=== PATIENT | male | born 1995 | race Caucasian/White ===

== ENCOUNTER → 2016-09-30 | Outpatient (CLI) | payer OTHER ==
[~2016-09-30] MED LIST: BUPR-79 PO
== END ==
LOC: C.LAB 03:53
DX: Z02.83 Encounter for blood-alcohol and blood-drug test (principal)

== ENCOUNTER 2016-10-07 06:37 | Inpatient (IN) | payer OTHER ==
[~2016-10-07] VITALS: Ht 177.8 cm; Wt 68.0 kg
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
[2016-10-07 07:21] LABS: BASO % 0.4 %; BASO ABS # 0.03 K/uL (0-0.2); COMPLETE YES; EOS % 0.6 %; HEMATOCRIT 41.5 % (42-52); IG% 0.2 %; LYMPH % 32.2 %; LYMPH ABS # 2.76 K/uL (1.2-3.4); MEAN CORPUSCULAR HEMOGLOBIN 30.4 pg (25-34); MEAN CORPUSCULAR HGB CONC 36.1 g/dl (32-36); MEAN PLATELET VOLUME 9.9 fL (7.4-10.4); MONO % 6.4 %; NEUT % 60.2 %; PLATELET COUNT 280 K/uL (130-400); RED BLOOD COUNT 4.94 M/uL (4.7-6.1); WHITE BLOOD COUNT 8.56 K/uL (4.8-10.8)
[2016-10-07 07:35] LABS: URINE APPEARANCE CLEAR (CLEAR); URINE BILIRUBIN NEG (NEG); URINE COLOR YELLOW; URINE NITRITE NEG (NEG); URINE PH 5.5 (4.5-7.5); URINE SPECIFIC GRAVITY 1.017 (1.000-1.030); UROBILINOGEN NEG (NEG); ZZUR CULT IF INDIC CLEAN CATCH NO
[2016-10-07 07:39] LABS: ALT/SGPT 31 U/L (12-78); BLOOD UREA NITROGEN 9 mg/dl (7-18); BUN/CREATININE RATIO 10.2 (10-20); CALCIUM 8.4 mg/dl (8.5-10.1); CARBON DIOXIDE 25 mmol/L (21-32); CHLORIDE 109 mmol/L (98-107); CREATININE 0.83 mg/dl (0.60-1.40); GLUCOSE 101 mg/dl (70-99); SODIUM 142 mmol/L (136-145)
[2016-10-07 07:40] LABS: MANUAL MICROSCOPIC REQUIRED? NO; REVIEW REQ? NO
[2016-10-07 07:50] LABS: ALKALINE PHOSPHATASE 69 U/L (45-117); AST/SGOT 18 U/L (15-37); THYROID STIMULATING HORMONE 0.299 uIu/ml (0.300-4.500)
[2016-10-07 07:57] LABS: ACETAMINOPHEN < 2 ug/ml (10-30)
[2016-10-07] MEDS ORDERED: LORAZEPAM 2 MG/ML 1 ML VIAL IM STA (08:06)
[2016-10-07] MEDS ORDERED: HALOPERIDOL LACTATE 5 MG/ML 1 ML VIAL IM STA (08:06)
[2016-10-07 08:34] LABS: BENZODIAZEPINE, URINE NEG (NEG); COCAINE,URINE NEG (NEG); PHENCYCLIDINE, URINE NEG (NEG)
[2016-10-07] MEDS ORDERED: BUPR-79 PO (08:37)
[2016-10-07] MEDS ORDERED: LORAZEPAM 1 MG TAB SL STA (15:12)
--- NOTE | 2016-10-07 16:52 | EMERGENCY ROOM VISIT NOTE ---
ED Visit Note Received patient in signout at change of shift from Dr. Mobley. History and physical verified by me. Patient currently receiving mental health evaluation. I will believe he will be admitted upstairs to 3 S. Current/Historical Medications Scheduled Bupropion (Wellbutrin Sr), 150 MG PO QAM Allergies Coded Allergies: No Known Allergies (Unverified , 10/07/16) Vital Signs Date Time Temp Pulse Resp B/P (MAP) Pulse Ox O2 Delivery O2 Flow Rate FiO2 10/07/16 15:59 93 18 156/87 97 Room Air 10/07/16 13:56 95 18 156/90 98 Room Air 10/07/16 12:13 86 10/07/16 12:00 87 16 97 Room Air 10/07/16 10:05 92 14 96 Room Air 10/07/16 09:50 90 15 96 Room Air 10/07/16 09:36 86 13 96 Room Air 10/07/16 09:21 88 11 96 10/07/16 09:16 87 10/07/16 09:16 87 15 96 Room Air 10/07/16 09:05 96 Room Air 10/07/16 06:48 36.7 76 16 127/82 97 Room Air Laboratory Results 10/07/16 07:00 Red Blood Count 4.94, Mean Corpuscular Volume 84.0, Mean Corpuscular Hemoglobin 30.4, Mean Corpuscular Hemoglobin Concent 36.1, Mean Platelet Volume 9.9, Neutrophils (%) (Auto) 60.2, Lymphocytes (%) (Auto) 32.2, Monocytes (%) (Auto) 6.4, Eosinophils (%) (Auto) 0.6, Basophils (%) (Auto) 0.4, Neutrophils # (Auto) 5.15, Lymphocytes # (Auto) 2.76, Monocytes # (Auto) 0.55, Eosinophils # (Auto) 0.05, Basophils # (Auto) 0.03 10/07/16 07:00 Test 10/07/16 06:14 10/07/16 07:00 Urine Color YELLOW Urine Appearance CLEAR (CLEAR) Urine pH 5.5 (4.5-7.5) Urine Specific [place] 1.017 (1.000-1.030) Urine Protein NEG (NEG) Urine Glucose (UA) NEG (NEG) Urine Ketones NEG (NEG) Urine Occult Blood NEG (NEG) Urine Nitrite NEG (NEG) Urine Bilirubin NEG (NEG) Urine Urobilinogen NEG (NEG) Urine Leukocyte Esterase NEG (NEG) Urine Opiates Screen NEG (NEG) Urine Methadone, Qualitative NEG (NEG) Urine Barbiturates NEG (NEG) Urine Phencyclidine (PCP) Level NEG (NEG) Ur Amphetamine/Methamphetamine NEG (NEG) MDMA (Ecstasy) Screen POS (NEG) Urine Benzodiazepines Screen NEG (NEG) Urine Cocaine Metabolite NEG (NEG) Urine Marijuana (THC) POS (NEG) White Blood Count 8.56 K/uL (4.8-10.8) Red Blood Count 4.94 M/uL (4.7-6.1) Hemoglobin 15.0 g/dL (14.0-18.0) Hematocrit 41.5 % (42-52) Mean Corpuscular Volume 84.0 fL (80-100) Mean Corpuscular Hemoglobin 30.4 pg (25-34) Mean Corpuscular Hemoglobin Concent 36.1 g/dl (32-36) Platelet Count 280 K/uL (130-400) Mean Platelet Volume 9.9 fL (7.4-10.4) Neutrophils (%) (Auto) 60.2 % Lymphocytes (%) (Auto) 32.2 % Monocytes (%) (Auto) 6.4 % Eosinophils (%) (Auto) 0.6 % Basophils (%) (Auto) 0.4 % Neutrophils # (Auto) 5.15 K/uL (1.4-6.5) Lymphocytes # (Auto) 2.76 K/uL (1.2-3.4) Monocytes # (Auto) 0.55 K/uL (0.11-0.59) Eosinophils # (Auto) 0.05 K/uL (0-0.5) Basophils # (Auto) 0.03 K/uL (0-0.2) RDW Standard Deviation 38.7 fL (36.4-46.3) RDW Coefficient of Variation 12.7 % (11.5-14.5) Immature Granulocyte % (Auto) 0.2 % Immature Granulocyte # (Auto) 0.02 K/uL (0.00-0.02) Anion Gap 8.0 mmol/L (3-11) Est Creatinine Clear Calc Drug Dose 134.3 ml/min Estimated GFR () 144.8 Estimated GFR (Non- 124.9 BUN/Creatinine Ratio 10.2 (10-20) Calcium Level 8.4 mg/dl (8.5-10.1) Total Bilirubin 0.2 mg/dl (0.2-1) Direct Bilirubin < 0.1 mg/dl (0-0.2) Aspartate Amino Transf (AST/SGOT) 18 U/L (15-37) Alanine Aminotransferase (ALT/SGPT) 31 U/L (12-78) Alkaline Phosphatase 69 U/L (45-117) Total Protein 7.6 gm/dl (6.4-8.2) Albumin 4.2 gm/dl (3.4-5.0) Thyroid Stimulating Hormone (TSH) 0.299 uIu/ml (0.300-4.500) Salicylates Level 1.8 mg/dl (2.8-20) Acetaminophen Level < 2 ug/ml (10-30) Ethyl Alcohol mg/dL 236.0 mg/dl (0-3) Medications Administered Medications (Trade) Dose Ordered Sig/Kourtney Route Start Time Stop Time Status Last Admin Dose Admin Haloperidol Lactate (Haldol Inj) 5 mg NOW STAT IM 10/07/16 08:06 10/07/16 08:07 DC 10/07/16 08:21 5 MG Lorazepam (Ativan Inj) 2 mg NOW STAT IM 10/07/16 08:06 10/07/16 08:07 DC 10/07/16 08:21 2 MG Lorazepam (Ativan Tab) 1 mg NOW STAT SL 10/07/16 15:12 10/07/16 15:13 DC 10/07/16 15:17 1 MG Departure Information Impression Primary Impression: Suicidal risk Additional Impressions: Substance abuse Homicidal behavior Referrals No Doctor, Assigned (PCP) Forms HOME CARE DOCUMENTATION FORM, IMPORTANT VISIT INFORMATION Patient Instructions My [facility] Problem Qualifiers
[2016-10-07] MEDS ORDERED: SODIUM CHLORIDE 0.65% NA SOLN 45 ML (OCEAN) PRN (17:00)
[2016-10-07] MEDS ORDERED: ACETAMINOPHEN 325 MG TAB PO PRN (17:00)
[2016-10-07] MEDS ORDERED: MAGNESIUM HYDROXIDE SUSP 30 ML UDC PO PRN (17:00)
[2016-10-07] MEDS ORDERED: BISMUTH SUBSALICYLATE PER ML OMNICELL CHARGE PO PRN (17:00)
[2016-10-07] MEDS ORDERED: hydrOXYzine HCL 25 MG TAB PO PRN ×2 (17:00)
[2016-10-07] MEDS ORDERED: LORAZEPAM 1 MG TAB PO PRN (17:00)
[2016-10-07] MEDS ORDERED: ALUMINUM/MAGNESIUM SUSP 30 ML UDC PO PRN (17:00)
[2016-10-07 17:09] VITALS: O2SAT 97
[2016-10-07 17:47] VITALS: BP 128/74; PULSE 88; TEMP 36.7; Ht 177.8 cm; Wt 68.0 kg
[2016-10-07] MEDS ORDERED: THIAMINE HCL 100 MG TAB PO SCH (18:00)
[2016-10-08 07:00] VITALS: BP_SYST 132; BP_SYST 136; BP_DIAS 76; BP_DIAS 82; PULSE 72; PULSE 83; TEMP 36.6
[2016-10-08 10:15] VITALS: BP 131/84; PULSE 65; TEMP 36.7
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
[2016-10-08 12:56] VITALS: BP 134/89; PULSE 86; TEMP 36.7
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
[2016-10-08 15:45] VITALS: BP 134/89; PULSE 86; TEMP 36.7; O2SAT 96
[2016-10-11 23:32] LABS: SYNTHETIC CANNABINOIDS QL URIN NEGATIVE (Negative)
== END 2016-10-08 16:20 | DRG 881 ==
LOC: C.EDB 06:38 → C.MHU 17:05
PROVIDERS: ADMIT Psychiatry & Neurology Psychiatry; ATTEND Psychiatry & Neurology Psychiatry
DX: F32.9 Major depressive disorder, single episode, unspecified (principal); R45.851 Suicidal ideations

== ENCOUNTER 2017-09-22 12:15 | Emergency (ER) | payer OTHER ==
[~2017-09-22] VITALS: Ht 177.8 cm; Wt 79.3 kg
[2017-09-22 12:22] VITALS: TEMP 36.8; Ht 177.8 cm; Wt 79.3 kg
[2017-09-22] MEDS ORDERED: LIDOCAINE/EPINEPHRINE 1% 20 ML VIAL INFIL STA (12:31)
--- NOTE | 2017-09-22 12:35 | EMERGENCY ROOM VISIT NOTE ---
ED Visit Note First contact with patient: 12:26 Chief Complaint: "Laceration of back of head". History of Present Illness: This patient is a 22-year-old male who presents to the Emergency Department accompanied by 2 correctional officers for evaluation of their posterior scalp laceration. Patient sustained the laceration while tipping back in a chair while reading a book at the [facility], when the chair slipped out from underneath him and he struck the posterior occiput off of a windowsill. They report a moderate amount of bleeding initially. They report no loss of consciousness. He does note that he felt a little shaken up afterwards but notes he still did not lose consciousness. They deny any headache, visual disturbance, nausea. Patient rates his current discomfort as a 6/10. Patient's Tetanus status is believed to be currently up-to-date but he is not sure and declines updating the tetanus today. Medications: As noted below Allergies: None PMH: No pertinent SHx: Patient is currently incarcerated ROS: All pertinent positive and negative review of systems are appropriately documented in the History of Present Illness. Physical Exam: VITAL SIGNS - Vital signs and nursing notes were reviewed. Stable and afebrile. GENERAL -22-year-old male appearing his stated age. Communicates well with provider and answers questions appropriately. SKIN - There is a 3 cm laceration noted midline overlying the posterior occiput region. The edges gape apart with traction. There is active bleeding appreciated. No deep structures including vessels, musculature, or bony structures are appreciated. HEAD - Normocephalic. No Gonzalez's Sign or Raccoon's Eyes. No depressed skull fractures palpable. EYES - PERRL with EOMI bilaterally. Without subconjunctival hemorrhage. Palpebral conjunctiva pink and moist with no injection. EARS - No deformities of external structures noted on gross examination bilaterally. No hemotympanum present. No tympanic perforation noted. NOSE - Midline and without cyanosis. No epistaxis or clear watery discharge noted. Septum midline without deviation. No septal hematoma noted. No overlying ecchymosis noted. MOUTH/OROPHARYNX - Without perioral cyanosis. Tongue midline with equal elevation of palate bilaterally. No blood noted in the oropharynx. No tonsillar hypertrophy, erythema, or exudates noted. The emergency is no dental fractures noted. NECK - FROM assessed. No tenderness to palpation over the cervical spinous processes. No cervical paraspinal muscle tenderness noted. LUNGS - Chest wall symmetric without accessory muscle use, intercostals retractions, or central cyanosis. Normal vesicular breath sounds CTA B/L. No wheezes, rales, or rhonchi appreciated. CARDIAC - RRR with S1/S2. No murmur, rubs, or gallops appreciated. EXTREMITIES - No gross deformities noted of the extremities. +3/5 radial pulses palpated throughout. +5/5 strength noted in UE/LE bilaterally. NEUROLOGIC - Cranial nerves II through XII grossly intact. Sensory intact to light touch throughout. PSYCH - A&Ox3 and cooperates fully with examiner. Pt is very pleasant and interacts well with examiner. ED Course: Patient was seen and evaluated by myself. Patient had no focal neurological deficits. Patient's exam is otherwise unremarkable. Patient reports no headaches , visual disturbances, nausea, vomiting, or over-lethargy. Risk and benefits of performing primary wound closure versus no repair were discussed with the patient who verbalizes understanding. Verbal consent was obtained prior to performing the procedure. I did recommend that we obtain a CT scan of the patient's head secondary to his mechanism of injury, as well as his "shaking" state after he struck his head. Patient was fully explained risk versus benefit of CT scan. He declined. I informed him upon risk of intracranial bleed and fracture, and after discussing this he still declined the examination of the CT scan of the head. 3 cc of 1% buffered lidocaine with epinephrine was used to anesthetize the posterior scalp laceration. The wound was cleansed and prepped in the typical sterile fashion utilizing normal saline and Betadine. The wound was sterilely draped. Once proper anesthetization was established, the wound was further examined and demonstrated no deep involvement. The wound was copiously irrigated with normal saline and Betadine. The wound was closed using 5 tashi with the wound edges being well approximated. Patient tolerated the procedure well. No complications were met. The wound was cleansed and dressed with a Bacitracin dressing. Patient again declined tetanus immunization as well as CT scan of the head. Patient educated on worrisome symptoms for return visit to the Emergency Department. Patient discharged to home in good condition. In the evaluation and treatment of this patient, the following differential diagnoses were considered: Concussion, Contrecoup Injury, Brain Tumor, Depression, Encephalitis, Hypothyroidism, Meningitis, CVA, TIA, Migraine, Cluster Headache, Intracranial Abnormality, Intracranial Hemorrhage, Subdural Hematoma, Subarachnoid Hemorrhage, Hydrocephalus. Allergies Coded Allergies: No Known Allergies (Unverified , 10/07/16) Vital Signs Date Time Temp Pulse Resp B/P (MAP) Pulse Ox O2 Delivery O2 Flow Rate FiO2 09/22/17 13:01 78 16 119/70 99 09/22/17 12:22 36.8 92 18 157/79 99 Room Air Departure Information Impression Primary Impression: Laceration of scalp Dispostion Home / Self-Care Condition GOOD Referrals No Doctor, Assigned (PCP) Patient Instructions My [facility] Additional Instructions Discharge Instructions: You have received 5 tashi on your scalp. These tashi are NOT dissolvable and WILL need to be removed by a health care provider in 7-10 days. He has respectfully declined tetanus immunization today as well as CT scan of his head. Proper wound care is essential for adequate wound healing and infection prevention. You can shower and clean the wound with soap and water. Do scour over the wound, pat dry with a towel. Do not submerse the wound until the tashi have been removed. You can use an antibiotic ointment with a dressing over the wound for the next 3-4 days. After this time you may leave the wound dry and open to the air. If crust develops over the wound you can use a Q-tip to apply a 1:1 peroxide:water solution to clean the wound. Look for signs of infection of the wound including: increased pain, swelling, foul discharge, streaking, or increased temperature. If any of these are noticed you should return to the Emergency Department for further assessment and treatment. As with any laceration you may have received nerve damage to the surrounding tissues. This damage may or may not be permanent. For pain control, you can use the following [id number] medicines (if >12 yo): - Regular strength (325mg/tab) Tylenol (acetaminophen) 2 tabs every 4-6 hours as needed. Do not exceed 12 tablets in a 24 hour period. Avoid taking more than 3 grams (3000 mg) of Tylenol per day. This includes any other sources of acetaminophen you may take on a regular basis. - Regular strength (200 mg/tab) Advil (ibuprofen) 1-2 tabs every 4-6 hours as needed. Do not exceed a dose of 3200 mg per day. Return to the emergency department if your symptoms worsen despite treatment course outlined above.
[2017-09-22 13:01] VITALS: BP 119/70; PULSE 78; O2SAT 99
== END 2017-09-22 13:03 | disposition home or self-care (01) ==
LOC: C.EDB 12:17 → C.EDD 13:03
DX: S01.01XA Laceration without foreign body of scalp, initial encounter (principal); W07.XXXA Fall from chair, initial encounter; W22.8XXA Striking against or struck by other objects, initial encounter; Y92.149 Unspecified place in prison as the place of occurrence of the external cause